=== PATIENT | male | born 1975 | race Caucasian/White ===

== ENCOUNTER → 2016-06-28 | Outpatient (CLI) | payer OTHER | LOC: CLAB 10:14 → EDSTATUS 10:24 → FIMAGING 10:26 | PROVIDERS: ATTEND Family Medicine | DX: M54.12 Radiculopathy, cervical region (principal); M50.322 Other cervical disc degeneration at C5-C6 level ==

== ENCOUNTER → 2016-07-09 | Outpatient (CLI) | payer OTHER | LOC: FIMAGING 10:00 | PROVIDERS: ATTEND Family Medicine | DX: M48.02 Spinal stenosis, cervical region (principal); M50.31 Other cervical disc degeneration, high cervical region; M50.322 Other cervical disc degeneration at C5-C6 level; M99.71 Connective tissue and disc stenosis of intervertebral foramina of cervical region; G95.20 Unspecified cord compression ==